=== PATIENT | male | born 1955 | race Caucasian/White ===

== ENCOUNTER → 2017-03-01 | Outpatient (CLI) | payer BC ==
--- NOTE | 2017-03-01 13:40 | RADIOLOGY REPORT (SQ) ---
EXAM DESCRIPTION: KUB COMPLETED DATE/TIME: 03/01/2017 1:30 pm REASON FOR STUDY: CALCULUS OF KIDNEY N20.0 CALCULUS OF KIDNEY COMPARISON: CT abdomen pelvis 07/05/2011 KUB 07/11/2013, 06/18/2014, 05/21/2015 NUMBER OF VIEWS: One view. TECHNIQUE: Supine radiographic image of the abdomen acquired. LIMITATIONS: None. FINDINGS: BOWEL GAS PATTERN: Normal bowel gas pattern. No dilated loops. CALCIFICATIONS: On the right side, a 10 mm lower pole intrarenal nonobstructive stone is present, sta ble. On the left side, 5 mm upper pole and 5 mm lower pole stones are present, stable. There are calcified phleboliths in the left pelvis. No calcifications over the expected location of the right or left ureter or bladder. SOFT TISSUES: No gross mass or suggestion of organomegaly. HARDWARE: None in the abdomen. BONES: Degenerative changes posterior elements left greater than right at L5-S1 OTHER: No other significant finding. IMPRESSION: Stable bilateral intrarenal nonobstructive calculi TECHNICAL DOCUMENTATION: JOB ID: [id number] [employer]- All Rights Reserved
== END ==
LOC: OD 12:55
PROVIDERS: ATTEND Urology
DX: N20.0 Calculus of kidney (principal); N50.812 Left testicular pain
CPT/HCPCS: 36415; 74018; 84153